=== PATIENT | female | born 1980 | race Caucasian/White ===

== ENCOUNTER 2024-02-29 13:35 | Emergency (ER) | payer MEDICAID ==
[~2024-02-29] VITALS: Ht 172.7 cm; Wt 81.8 kg
[~2024-02-29 13:35] MED LIST: ALPR-624 PO; CARI350T PO; METH-603 PO
[2024-02-29] MEDS: ondansetron 4mg rapidly disintigrating tab PO ONE (16:09)
[2024-02-29] MEDS: oxyCODONE/APAP 10/325mg tablet PO ONE (16:09)
[2024-02-29] MEDS: LIDOcaine 1% W/epiNEPHrine 1:100,000 20ml vial SQ ONE (16:10)
[2024-02-29] MEDS: fentaNYL/PF 50MCG/1 ML 2ML syringe IV ONE ×3 (17:15→17:54)
[2024-02-29] MEDS: ondansetron/PF 4mg/2ml inj IV ONE (17:54)
[2024-02-29] MEDS ORDERED: HYDR-3973 PO (18:38)
[2024-02-29 19:16] VITALS: BP 127/77; PULSE 73; RESP 16; TEMP 97.8; O2SAT 97
== END 2024-02-29 19:22 | disposition home or self-care (01) ==
LOC: ER 13:36
DX: S82.842A Displaced bimalleolar fracture of left lower leg, initial encounter for closed fracture (principal); S93.05XA Dislocation of left ankle joint, initial encounter; Z79.899 Other long term (current) drug therapy; X50.1XXA Overexertion from prolonged static or awkward postures, initial encounter; Y93.89 Activity, other specified; Y92.89 Other specified places as the place of occurrence of the external cause; Y99.8 Other external cause status
CPT/HCPCS: 27810; 73610; 73630; 96374; 96376; 99284; J3010